=== PATIENT | female | born 1995 | race Caucasian/White ===

== ENCOUNTER 2024-11-25 13:37 | Outpatient (AMB) | payer OTHER, SELFPAY ==
[2024-11-25 13:49] VITALS: BP 101/61; PULSE 78; RESP 17; TEMP 36.9; O2SAT 98; BMI 25.9
--- NOTE | 2024-11-25 13:49 | OBCLNT_ITS ---
Vital Signs 11/25/24 13:49 Height 1.65 m Height Method Stated Weight 70.817 kg Weight Measurement Method Standing Scale BMI 25.9 BP 101/61 Blood Pressure Source Automatic Cuff Blood Pressure Location Right Upper Arm Position Sitting Respiration 17 Pulse 78 Pulse Source Monitor Temp 98.4 F Temp Source Temporal Artery Scan Pulse Oximetry (%) 98 Oxygen Delivery Method Room Air Allergies/Home Meds Allergies & Medications Allergies No Known Allergies Allergy (Verified 11/25/24 13:54) Medication Reconciliation vits no.126-ferrous fum 28 mg iron-folic acid 800 mcg tablet (Classic ) tab PO 11/25/24 [History Confirmed 12/13/24] levothyroxine 88 mcg capsule 88 mcg PO QDAY 11/29/24 [History Confirmed 12/13/24] Intake Visit Data Collection New Patient or Established: New Patient (never been to [facility]) Reason for Visit:: ROBERT Seen by Clinical Staff ONLY (RN/MA): No Missing Persons Investigator Required: No Do You Feel Safe at Home: Yes Authorities Contacted: N/A PCP or OBGYN visit in last 3 months: No Hx Now: Yes Are you currently on any form of Control: No Pain Present Currently: No Pain Scale Used: Valdovinos-Roy/Numerical Pain scale:: 0 Smoking Status Smoking Status: Never smoker Questionnaires Covid-19 Vaccine Questionnaire Has patient been vacinated for Covid-19 Have you been vacinated for Covid-19: No PHQ-9 PHQ-2 Over the last 2 weeks, how often have you been bothered by any of the following problems? 1. Little interest or pleasure in doing things: not at all 2. Feeling down, depressed, or hopeless: not at all Total score: 0 PHQ-9 3. Trouble falling or staying asleep, or sleeping too much: Not at all 4. Feeling tired or having little energy: Not at all 5. Poor appetite or overeating: Not at all 6. Feeling bad about yourself - or that you are a failure or have let yourself or your family down: Not at all 7. Trouble concentrating on things, such as reading the newspaper or watching television: Not at all 8. Moving or speaking so slowly that other people could have noticed? - Or the opposite - being so fidgety or restless that you have been moving around a lot more than usual: not at all 9. Thoughts that you would be better off or of hurting yourself in some way: Not at all Total score: 0 If you checked off any problems, how difficult have these problems made it for you to do your work, take care of things at home, or get along with other people?: not difficult at all Source: Developed by Drs. Reese Quinones, Becky Metz, Kg Zaragoza and colleagues, with an educational artemio from [employer]. Depression screen completed yes Social History Living Situation History Marital Status: Lives With: Spouse Housing: House Housing Other:: Patient stays at home. Her was in the . She was raised here Tobacco History Smoking Status: Never smoker Second Hand Smoke Exposure: No Alcohol History Alcohol Intake: Never Domestic Abuse History Do You Feel Safe at Home: Yes History of Present Illness HPI Narrative The patient is a 29-year-old -0-1-0 presents as an OB transfer. She is an IVF year. Thinks she started her in [place] and then at some point was at [place]. She is is present with her . She brought a thick stack of records for me. She has had an uncomplicated so far. She states based on a 21-week ultrasound she had a low-lying placenta and needs a repeat ultrasound. She is healthy. She had an unknown reason for infer tility. She states she has at least 4 embryos stored. They did not do pregenetic testing on the embryo. 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 Patient may or may not have hypothyroidism. She was placed on thyroid medication by her REYES. OB Initial Visit Menstrual History Menstrual reliability: definite Flow: normal Menstrual regularity: regular Monthly: Yes Age at menarche: 15 On control pills at conception: No OB History : 1 Infection History & Risk Evaluation History of STDs: none HIV risk evaluation: low risk Hepatitis B risk evaluation: low risk Patient or partner has history of Genital Herpes: No Varicella/chicken pox status: unknown Genetic Screening & History Genetic Screening/Teratology Counseling - Includes patient, baby's father, or anyone in either family with: 1. Patient's age 35 years or older as of estimated date of delivery: No 2. Thalassemia (Estonian, Maori, Mediterranean, or Background); MCV less than 80: No 3. Neural Tube Defect (Meningomyelocele, Spina Bifida, or Anencephaly): No 4. Congenital Heart Defect: No 5. Down Syndrome: No 6. Srinivasan-Sachs (Ashkenazi Oriental Orthodox, Cajun, Danish [place]): No 7. Ambrose Disease (Ashkenazi Oriental Orthodox): No 8. Familial Dysautonomia (Ashkenazi Oriental Orthodox): No 9. Sickle Cell Disease or Trait (): No 10. Hemophilia or other blood disorders: No 11. Muscular Dystrophy: No 12. Cystic Fibrosis: No 13. Alec's Chorea: No 14. Mental Retardation/Autism: No 15. Other inherited genetic or chromosomal disorder: No 16. Maternal Metabolic Disorder (EG,TYPE 1 Diabetes, PKU): No 17. Patient or baby's father had a child with defects not listed above: No 18. Recurrent loss or a stillbirth: No 19. Medications (including supplements, vitamins, herbs or otc drugs)/illicit/recreational drugs/alcohol since last menstrual period: No 20. Any other: No Infection History 1. Live with someone with TB or exposed to TB: No 2. Rash or viral illness since last menstrual period: No 3. Hepatitis B,C: No Other (see comments) Source: [employer] Review of Systems Constitutional Comments: Patient reports good movement no contractions no loss of bleeding she is a little tired but has no major nausea or vomiting. She has had an easy . Exam Narrative Physical exam: Fundal height 32. No significant edema or erythema. General Limitations: no limitations General Appearance: alert, in no apparent distress, comfortable, cooperative, healthy appearing and well groomed Neck Neck exam: Present normal inspection, full ROM and trachea midline Chest Chest inspection: Present normal inspection and symmetric chest wall rise Resp Respiratory exam: Present normal lung sounds bilaterally Card Cardiovascular exam: Present regular rate, normal rhythm and normal heart sounds Abdominal Abdominal exam: Present soft and normal bowel sounds Psych Psychiatric exam: Present normal affect and normal mood Skin Skin exam: Present warm, dry, intact and normal color Office Procedures OB Clinic LOC & Office Proc's Nursing/Assessment Patient Status: Initial/New Patient OB Clinic Nursing Assessment: Medication Reconciliation, Update PMH in EMR and Vital Signs OB Clinic Coordination of Care: Complex Care and Chronic Disease 1-5, Consent,records obtained, informed consent, Education Simp Pt/Fam, 4+ Authorizations needed, Lab and Imaging orders, Results/Orders obtained and Staff clarify orders Special Needs: Heart tones New Patient Charge New Patient Point Assignment: [id number] New Patient Point Charge: AGRICULTURAL ECONOMICS PROFESSOR Level 5 (1159-above) Assessment & Plan Diagnosis / Problem List (1) Conceived by in vitro fertilization: Status: Acute Plan: Transfer from out of town. Normal level 21-week ultrasound with low-lying placenta. Repeat ultrasound. Had normal echocardiogram on thyroid medication from her REYES. (2) : Status: Acute Qualifiers: Weeks of gestation: 30 weeks Qualified Code(s): Z3A.30 - 30 weeks gestation of Plan: IVF . Follow-up in 2 weeks.. Needs glucose challenge test. Need repeat ultrasound to check placental location.
== END 2024-11-25 15:39 | disposition home or self-care (01) ==
LOC: HODSOBC 13:37
PROVIDERS: Supervising Provider Obstetrics & Gynecology; Visit Provider Obstetrics & Gynecology
DX: O09.813 Supervision of pregnancy resulting from assisted reproductive technology, third trimester (principal); O44.43 Low lying placenta NOS or without hemorrhage, third trimester; Z3A.30 30 weeks gestation of pregnancy; Z79.890 Hormone replacement therapy
CPT/HCPCS: 99205; G0463

== ENCOUNTER 2024-12-13 10:03 | Outpatient (AMB) | payer MEDICAID, SELFPAY ==
[2024-12-13 10:15] VITALS: BP 109/75; PULSE 80; RESP 17; TEMP 36.7; O2SAT 97; BMI 26.7
--- NOTE | 2024-12-13 10:15 | AMB.OBVISIT ---
Vital Signs 12/13/24 10:15 Height 1.65 m Height Method Stated Weight 72.745 kg Weight Measurement Method Standing Scale BMI 26.7 BP 109/75 Blood Pressure Source Automatic Cuff Blood Pressure Location Right Upper Arm Position Sitting Respiration 17 Pulse 80 Pulse Source Monitor Temp 98.0 F Temp Source Temporal Artery Scan Pulse Oximetry (%) 97 Oxygen Delivery Method Room Air Allergies/Home Meds Allergies & Medications Allergies No Known Allergies Allergy (Verified 11/25/24 13:54) Medication Reconciliation vits no.126-ferrous fum 28 mg iron-folic acid 800 mcg tablet (Classic ) tab PO 11/25/24 [History Confirmed 12/13/24] levothyroxine 88 mcg capsule 88 mcg PO QDAY 11/29/24 [History Confirmed 12/13/24] Intake Visit Data Collection New Patient or Established: Established Patient (seen at [facility] within 3 years) Reason for Visit:: OBC Seen by Clinical Staff ONLY (RN/MA): No Leveler Required: No Do You Feel Safe at Home: Yes Authorities Contacted: N/A PCP or OBGYN visit in last 3 months: Yes Date of Last PCP or OBGYN visit: 11/25/24 Hx Now: Yes Are you currently on any form of Control: No Pain Present Currently: No Pain Scale Used: Valdovinos-Roy/Numerical Pain scale:: 0 Smoking Status Smoking Status: Never smoker Questionnaires Covid-19 Vaccine Questionnaire Has patient been vacinated for Covid-19 Have you been vacinated for Covid-19: No PHQ-9 PHQ-2 Over the last 2 weeks, how often have you been bothered by any of the following problems? 1. Little interest or pleasure in doing things: not at all 2. Feeling down, depressed, or hopeless: not at all Total score: 0 PHQ-9 3. Trouble falling or staying asleep, or sleeping too much: Not at all 4. Feeling tired or having little energy: Not at all 5. Poor appetite or overeating: Not at all 6. Feeling bad about yourself - or that you are a failure or have let yourself or your family down: Not at all 7. Trouble concentrating on things, such as reading the newspaper or watching television: Not at all 8. Moving or speaking so slowly that other people could have noticed? - Or the opposite - being so fidgety or restless that you have been moving around a lot more than usual: not at all 9. Thoughts that you would be better off or of hurting yourself in some way: Not at all Total score: 0 If you checked off any problems, how difficult have these problems made it for you to do your work, take care of things at home, or get along with other people?: not difficult at all Source: Developed by Drs. Reese Quinones, Becky Metz, Kg Zaragoza and colleagues, with an educational artemio from [employer]. Depression screen completed yes Social History Living Situation History Marital Status: Lives With: Spouse Housing: House Tobacco History Smoking Status: Never smoker Second Hand Smoke Exposure: No Alcohol History Alcohol Intake: Never Domestic Abuse History Do You Feel Safe at Home: Yes Care OB Visit Log OB Flowsheet Initial Weight: Not Recorded Date <del>?</del> EGA Weight BP Alb Glu CTX Pres Fundal ht FHR Mov Dilation Station Effacement Hx Notes Visit Note 12/13/24 <del>?</del> 32w 3d 72.745 kg 109/75 absent 33 145 active +FM, No UCs No VB Discussed labor. Patient would like to go natural but she is flexible. She would like to sit on the labor ball if possible. Patient is very reasonable with her labor plan. She states I trust my medical providers . NYDIA Calculator Estimated Delivery Date Method Current WG Current Estimate 02/04/25 LMP (Certain) 32w 3d Other Estimates 01/31/25 Ultrasound #1 33w 0d Expected Delivery Route/Plan Anticipate Specific Issue/Plans 29-year-old -0-1-0 IVF EDC 02/02/2025 consistent with 8-week ultrasound and 20-week ultrasound Notes Visit Date: 12/13/24 Last Updated by: Amy Beltran (OB Clinic)MD care labs reviewed on chart. AB+/antibody negative/rubella immune/RPR nonreactive/hepatitis B surface antigen negative/hepatitis C negative/GC negative Chlamydia negative//hemoglobin A1c in normal at 4.8./NIPT SMA CF negative/21-week ultrasound normal anatomy with a low-lying placenta/echocardiogram on baby normal/EDC by 20-week ultrasound 02/02/2025/EDC by 8-4/7 weeks ultrasound 02/02/2025/EDC by IVF 02/04/2025/urine culture negative. 1 hour glucose 104 Office Procedures OB Clinic LOC & Office Proc's Nursing/Assessment Patient Status: Established Patient OB Clinic Nursing Assessment: Medication Reconciliation, Update PMH in EMR and Vital Signs OB Clinic Coordination of Care: Complex Care and Chronic Disease 1-5, Consent,records obtained, informed consent, Education Simp Pt/Fam and Staff clarify orders Special Needs: Heart tones Established Patient Charge Established Patient Point Assignment: 115 Established Patient Point Charge: EP Level 3 (80-115) Assessment & Plan Diagnosis / Problem List (1) : Status: Acute Qualifiers: Weeks of gestation: 32 weeks Qualified Code(s): Z3A.32 - 32 weeks gestation of (2) Conceived by in vitro fertilization: Status: Acute
== END 2024-12-13 11:25 | disposition home or self-care (01) ==
PROVIDERS: Supervising Provider Obstetrics & Gynecology; Visit Provider Obstetrics & Gynecology
DX: O09.813 Supervision of pregnancy resulting from assisted reproductive technology, third trimester (principal); Z3A.32 32 weeks gestation of pregnancy
CPT/HCPCS: 99213; G0463

== ENCOUNTER 2024-12-29 13:00 | Outpatient (AMB) | payer MEDICAID, SELFPAY ==
[2024-12-29 13:08] VITALS: BP 126/72; PULSE 88; RESP 16; TEMP 36.7; O2SAT 98; BMI 27.1
--- NOTE | 2024-12-29 13:08 | OBCLNT_ITS ---
Vital Signs 12/29/24 13:08 Height 1.65 m Height Method Stated Weight 73.936 kg Weight Measurement Method Standing Scale BMI 27.1 BP 126/72 Blood Pressure Source Automatic Cuff Blood Pressure Location Left Upper Arm Position Sitting Respiration 16 Pulse 88 Pulse Source Monitor Temp 98.1 F Temp Source Oral Pulse Oximetry (%) 98 Oxygen Delivery Method Room Air Allergies/Home Meds Allergies & Medications Allergies No Known Allergies Allergy (Verified 12/29/24 13:09) Medication Reconciliation vits no.126-ferrous fum 28 mg iron-folic acid 800 mcg tablet (Classic ) tab PO 11/25/24 [History Confirmed 12/29/24] levothyroxine 88 mcg capsule 88 mcg PO QDAY #60 caps 12/15/24 [Rx Confirmed 12/29/24] Intake Visit Data Collection New Patient or Established: Established Patient (seen at [facility] within 3 years) Reason for Visit:: CARE Seen by Clinical Staff ONLY (RN/MA): No Special Programs Director Required: No Do You Feel Safe at Home: Yes Authorities Contacted: N/A PCP or OBGYN visit in last 3 months: Yes Hx Now: Yes Are you currently on any form of Control: No Pain Present Currently: No Pain Scale Used: Valdovinos-Roy/Numerical Pain scale:: 0 Smoking Status Smoking Status: Never smoker Questionnaires PHQ-9 PHQ-2 Over the last 2 weeks, how often have you been bothered by any of the following problems? 1. Little interest or pleasure in doing things: not at all 2. Feeling down, depressed, or hopeless: not at all Total score: 0 PHQ-9 3. Trouble falling or staying asleep, or sleeping too much: Not at all 4. Feeling tired or having little energy: Not at all 5. Poor appetite or overeating: Not at all 6. Feeling bad about yourself - or that you are a failure or have let yourself or your family down: Not at all 7. Trouble concentrating on things, such as reading the newspaper or watching television: Not at all 8. Moving or speaking so slowly that other people could have noticed? - Or the opposite - being so fidgety or restless that you have been moving around a lot more than usual: not at all 9. Thoughts that you would be better off or of hurting yourself in some way: Not at all Total score: 0 Source: Developed by Drs. Reese Quinones, Becky Metz, Kg Zaragoza and colleagues, with an educational artemio from [employer]. Depression screen completed yes Social History Living Situation History Lives With: Spouse Housing: House Housing Other:: Patient stays at home. Her was in the . She was raised here Tobacco History Smoking Status: Never smoker Second Hand Smoke Exposure: No Alcohol History Alcohol Intake: Never Domestic Abuse History Do You Feel Safe at Home: Yes Care OB Visit Log OB Flowsheet Initial Weight: Not Recorded Date -?-?-?-?-?-?-?-?-?-?-?-?- EGA Weight BP Alb Glu CTX Pres Fundal ht FHR Mov Dilation Station Effacement Hx Notes Visit Note 12/13/24 -?-?-?-?-?-?-?-?-?-?-?-?- 32w 3d 72.745 kg 109/75 absent 33 145 active +FM, N o UCs No VB Discussed labor. Patient would like to go natural but she is flexible. She would like to sit on the labor ball if possible. Patient is very reasonable with her labor plan. She states I trust my medical providers . 12/29/24 -?-?-?-?-?-?-?-?-?-?-?-?- 34w 5d 73.936 kg 126/72 absent cephalic 34 137 active +FM No UCs or LOF NYDIA Calculator Estimated Delivery Date Method Current WG Current Estimate 02/04/25 LMP (Certain) 35w 3d Other Estimates 01/31/25 Ultrasound #1 36w 0d Expected Delivery Route/Plan Anticipate Has a plan wants FOB to deliver baby Specific Issue/Plans 29-year-old -0-1-0 IVF EDC 02/02/2025 consistent with 8-week ultrasound and 20-week ultrasound Had ECHO on baby Notes Visit Date: 12/29/24 Last Updated by: Amy Beltran (OB Clinic)MD US ordered 12/29: No low-lying placenta Baby VTX 2610 gm CHANTAL 13.8 appropriate growth Visit Date: 12/13/24 Last Updated by: Amy Beltran (OB Clinic)MD care labs reviewed on chart. AB+/antibody negative/rubella immune/RPR nonreactive/hepatitis B surface antigen negative/hepatitis C negative/GC negative Chlamydia negative//hemoglobin A1c in normal at 4.8./NIPT SMA CF negative/21-week ultrasound normal anatomy with a low-lying placenta/echocardiogram on baby normal/EDC by 20-week ultrasound 02/02/2025/EDC by 8-4/7 weeks ultrasound 02/02/2025/EDC by IVF 02/04/2025/urine culture negative. 1 hour glucose 104 Office Procedures OB Clinic LOC & Office Proc's Nursing/Assessment Patient Status: Established Patient OB Clinic Nursing Assessment: Medication Reconciliation, Update PMH in EMR and Vital Signs OB Clinic Coordination of Care: Complex Care and Chronic Disease 1-5, Consent,records obtained, informed consent, Education Simp Pt/Fam, 1 Ins Authorization, Lab and Imaging orders, Results/Orders obtained and Staff clarify orders Special Needs: Heart tones Established Patient Charge Established Patient Point Assignment: 150 Established Patient Point Charge: EP Level 4 (120-155) Assessment & Plan Diagnosis / Problem List (1) Low lying placenta without hemorrhage, antepartum: Status: Acute Plan: Resolved on 34 weeks US (2) Conceived by in vitro fertilization: Status: Acute (3) : Status: Acute Qualifiers: Weeks of gestation: 34 weeks Qualified Code(s): Z3A.34 - 34 weeks gestation of
== END 2024-12-29 14:04 | disposition home or self-care (01) ==
LOC: HODSOBC 13:00
PROVIDERS: Supervising Provider Obstetrics & Gynecology; Visit Provider Obstetrics & Gynecology
DX: O09.813 Supervision of pregnancy resulting from assisted reproductive technology, third trimester (principal); O09.893 Supervision of other high risk pregnancies, third trimester; O44.43 Low lying placenta NOS or without hemorrhage, third trimester; Z3A.34 34 weeks gestation of pregnancy
CPT/HCPCS: 99214; G0463

== ENCOUNTER → 2024-12-29 | Outpatient (CLI) | payer MEDICAID, SELFPAY ==
--- NOTE | 2024-12-29 14:55 | XR_ITS ---
Examination: Complete OB ultrasound greater than 14 weeks Date and time of exam: December 29, 2024, 1520 hours INDICATIONS: Diagnosis low lying placenta Findings: Viable intrauterine single fetus with single amniotic sac presentation cephalic spine maternal right. Cardiac motion 140 BPM. Placenta anterior grade 2. Umbilical cord insertion seen. Amniotic fluid index 13.8 cm Cervix 3.5 cm. Ovaries obscured by bowel gas.. Composite estimated gestational age based on BPD, head circumference, abdominal circumference, femur length is 35 weeks 0 days. Estimated weight 2610 g.. Survey of intracranial anatomy, spinal anatomy, abdominal anatomy, four-chamber heart performed with no abnormalities identified. Impression: Viable intrauterine gestation cephalic presentation..
== END | disposition home or self-care (01) ==
PROVIDERS: Referring Provider Obstetrics & Gynecology; Visit Provider Obstetrics & Gynecology
DX: O44.40 Low lying placenta NOS or without hemorrhage, unspecified trimester (principal); Z3A.35 35 weeks gestation of pregnancy
CPT/HCPCS: 76805

== ENCOUNTER 2025-01-04 10:30 | Outpatient (AMB) | payer MEDICAID, SELFPAY ==
[2025-01-04 11:11] VITALS: BP 121/71; PULSE 97; RESP 16; TEMP 36.2; O2SAT 97; BMI 27.2
--- NOTE | 2025-01-04 11:11 | OBCLNT_ITS ---
Vital Signs 01/04/25 11:11 Height 1.65 m Height Method Stated Weight 74.162 kg Weight Measurement Method Standing Scale BMI 27.2 BP 121/71 Blood Pressure Source Automatic Cuff Blood Pressure Location Left Upper Arm Position Sitting Respiration 16 Pulse 97 Pulse Source Monitor Temp 97.2 F Temp Source Oral Pulse Oximetry (%) 97 Oxygen Delivery Method Room Air Allergies/Home Meds Allergies & Medications Allergies No Known Allergies Allergy (Verified 01/04/25 11:12) Medication Reconciliation vits no.126-ferrous fum 28 mg iron-folic acid 800 mcg tablet (Classic ) tab PO 11/25/24 [History Confirmed 01/04/25] levothyroxine 88 mcg capsule 88 mcg PO QDAY #60 caps 12/15/24 [Rx Confirmed 01/04/25] Intake Visit Data Collection New Patient or Established: Established Patient (seen at [facility] within 3 years) Reason for Visit:: OBC Seen by Clinical Staff ONLY (RN/MA): No Pulper Required: No Do You Feel Safe at Home: Yes Authorities Contacted: N/A PCP or OBGYN visit in last 3 months: Yes Date of Last PCP or OBGYN visit: 12/29/24 Hx Now: Yes Are you currently on any form of Control: No Pain Present Currently: No Pain Scale Used: Valdovinos-Roy/Numerical Pain scale:: 0 Smoking Status Smoking Status: Never smoker Questionnaires Covid-19 Vaccine Questionnaire Has patient been vacinated for Covid-19 Have you been vacinated for Covid-19: Yes PHQ-9 PHQ-2 Over the last 2 weeks, how often have you been bothered by any of the following problems? 1. Little interest or pleasure in doing things: not at all 2. Feeling down, depressed, or hopeless: not at all Total score: 0 PHQ-9 3. Trouble falling or staying asleep, or sleeping too much: Not at all 4. Feeling tired or having little energy: Not at all 5. Poor appetite or overeating: Not at all 6. Feeling bad about yourself - or that you are a failure or have let yourself or your family down: Not at all 7. Trouble concentrating on things, such as reading the newspaper or watching television: Not at all 8. Moving or speaking so slowly that other people could have noticed? - Or the opposite - being so fidgety or restless that you have been moving around a lot more than usual: not at all 9. Thoughts that you would be better off or of hurting yourself in some way: Not at all Total score: 0 If you checked off any problems, how difficult have these problems made it for you to do your work, take care of things at home, or get along with other people?: not difficult at all Source: Developed by Drs. Reese Quinones, Becky Metz, Kg Zaragoza and colleagues, with an educational artemio from [employer]. Depression screen completed yes Social History Living Situation History Lives With: Spouse Housing: House Housing Other:: Patient stays at home. Her was in the . She was raised here Tobacco History Smoking Status: Never smoker Second Hand Smoke Exposure: No Alcohol History Alcohol Intake: Never Domestic Abuse History Do You Feel Safe at Home: Yes Care OB Visit Log OB Flowsheet Initial Weight: Not Recorded Date -?-?-?-?-?-?-?-?-?-?-?-?- EGA Weight BP Alb Glu CTX Pres Fundal ht FHR Mov Dilation Station Effacement Hx Notes Visit Note 12/13/24 -?-?-?-?-?-?-?-?-?-?-?-?- 32w 3d 72.745 kg 109/75 absent 33 145 active +FM, N o UCs No VB Discussed labor. Patient would like to go natural but she is flexible. She would like to sit on the labor ball if possible. Patient is very reasonable with her labor plan. She states I trust my medical providers . 12/29/24 -?-?-?-?-?-?-?-?-?-?-?-?- 34w 5d 73.936 kg 126/72 absent cephalic 34 137 active +FM No UCs or LOF 01/04/25 -?-?-?-?-?-?-?-?-?-?-?-?- 35w 4d 74.162 kg 121/71 occasional cephalic 36 134 active Good movement. No contractions or loss of fluids. No vaginal bleeding Group B strep next visit. NYDIA Calculator Estimated Delivery Date Method Current WG Current Estimate 02/04/25 LMP (Certain) 36w 0d Other Estimates 01/31/25 Ultrasound #1 36w 4d Expected Delivery Route/Plan Anticipate Has a plan wants FOB to deliver baby Specific Issue/Plans 29-year-old -0-1-0 IVF EDC 02/02/2025 consistent with 8-week ultrasound and 20-week ultrasound Had ECHO on baby Notes Visit Date: 01/04/25 Last Updated by: Amy Beltran ([facility])MD Ordered weekly NST CHANTAL's for IVF . Visit Date: 12/29/24 Last Updated by: Amy Beltran ([facility] Clinic)MD US ordered 12/29: No low-lying placenta Baby VTX 2610 gm CHANTAL 13.8 appropriate growth Visit Date: 12/13/24 Last Updated by: Amy Beltran (OB Clinic)MD care labs reviewed on chart. AB+/antibody negative/rubella immune/RPR nonreactive/hepatitis B surface antigen negative/hepatitis C negative/GC negative Chlamydia negative//hemoglobin A1c in normal at 4.8./NIPT SMA CF negative/21-week ultrasound normal anatomy with a low-lying placenta/echocardiogram on baby normal/EDC by 20-week ultrasound 02/02/2025/EDC by 8-4/7 weeks ultrasound 02/02/2025/EDC by IVF 02/04/2025/urine culture negative. 1 hour glucose 104 Office Procedures OB Clinic LOC & Office Proc's Nursing/Assessment Patient Status: Established Patient OB Clinic Nursing Assessment: Medication Reconciliation, Update PMH in EMR and Vital Signs OB Clinic Coordination of Care: Education Complex Pt/Fam, Consent,records obtained, informed consent, Lab and Imaging orders and Staff clarify orders Special Needs: Heart tones Established Patient Charge Established Patient Point Assignment: 110 Established Patient Point Charge: EP Level 3 (80-115) Assessment & Plan Diagnosis / Problem List (1) Conceived by in vitro fertilization: Status: Acute Plan: Authorize for NSTs CHANTAL's (2) : Status: Acute Qualifiers: Weeks of gestation: 36 weeks Qualified Code(s): Z3A.36 - 36 weeks gestation of
== END 2025-01-04 11:23 | disposition home or self-care (01) ==
LOC: HODSOBC 10:30
PROVIDERS: Supervising Provider Obstetrics & Gynecology; Visit Provider Obstetrics & Gynecology
DX: O09.813 Supervision of pregnancy resulting from assisted reproductive technology, third trimester (principal); Z3A.35 35 weeks gestation of pregnancy
CPT/HCPCS: 99213; G0463

== ENCOUNTER 2025-01-19 10:34 | Outpatient (AMB) | payer MEDICAID, SELFPAY ==
[2025-01-19 11:09] VITALS: BP 109/71; PULSE 79; RESP 16; TEMP 36.2; O2SAT 98; BMI 27.8
--- NOTE | 2025-01-19 11:09 | OBCLNT_ITS ---
Vital Signs 01/19/25 11:09 Height 1.65 m Height Method Stated Weight 75.977 kg Weight Measurement Method Standing Scale BMI 27.8 BP 109/71 Blood Pressure Source Automatic Cuff Blood Pressure Location Left Upper Arm Position Sitting Respiration 16 Pulse 79 Pulse Source Monitor Temp 97.2 F Temp Source Oral Pulse Oximetry (%) 98 Oxygen Delivery Method Room Air Allergies/Home Meds Allergies & Medications Allergies No Known Allergies Allergy (Verified 01/19/25 11:10) Medication Reconciliation vits no.126-ferrous fum 28 mg iron-folic acid 800 mcg tablet (Classic ) tab PO 11/25/24 [History Confirmed 01/19/25] levothyroxine 88 mcg capsule 88 mcg PO QDAY #60 caps 12/15/24 [Rx Confirmed 01/19/25] Intake Visit Data Collection New Patient or Established: Established Patient (seen at [facility] within 3 years) Reason for Visit:: OBC Seen by Clinical Staff ONLY (RN/MA): No Supervisor Engine Assembly Required: No Do You Feel Safe at Home: Yes Authorities Contacted: N/A PCP or OBGYN visit in last 3 months: Yes Hx Now: Yes Are you currently on any form of Control: No Pain Present Currently: No Pain Scale Used: Valdovinos-Roy/Numerical Pain scale:: 0 Smoking Status Smoking Status: Never smoker Questionnaires Covid-19 Vaccine Questionnaire Has patient been vacinated for Covid-19 Have you been vacinated for Covid-19: No PHQ-9 PHQ-2 Over the last 2 weeks, how often have you been bothered by any of the following problems? 1. Little interest or pleasure in doing things: not at all 2. Feeling down, depressed, or hopeless: not at all Total score: 0 PHQ-9 3. Trouble falling or staying asleep, or sleeping too much: Not at all 4. Feeling tired or having little energy: Not at all 5. Poor appetite or overeating: Not at all 6. Feeling bad about yourself - or that you are a failure or have let yourself or your family down: Not at all 7. Trouble concentrating on things, such as reading the newspaper or watching television: Not at all 8. Moving or speaking so slowly that other people could have noticed? - Or the opposite - being so fidgety or restless that you have been moving around a lot more than usual: not at all 9. Thoughts that you would be better off or of hurting yourself in some way: Not at all Total score: 0 If you checked off any problems, how difficult have these problems made it for you to do your work, take care of things at home, or get along with other people?: not difficult at all Source: Developed by Drs. Reese Quinones, Becky Metz, Kg Zaragoza and colleagues, with an educational artemio from [employer]. Depression screen completed yes Social History Living Situation History Lives With: Spouse Housing: House Housing Other:: Patient stays at home. Her was in the . She was raised here Tobacco History Smoking Status: Never smoker Second Hand Smoke Exposure: No Alcohol History Alcohol Intake: Never Domestic Abuse History Do You Feel Safe at Home: Yes Care OB Visit Log OB Flowsheet Initial Weight: Not Recorded Date -?-?-?-?-?-?-?-?-?-?-?-?- EGA Weight BP Alb Glu CTX Pres Fundal ht FHR Mov Dilation Station Effacement Hx Notes Visit Note 12/13/24 -?-?-?-?-?-?-?-?-?-?-?-?- 32w 3d 72.745 kg 109/75 absent 33 145 active +FM, N o UCs No VB Discussed labor. Patient would like to go natural but she is flexible. She would like to sit on the labor ball if possible. Patient is very reasonable with her labor plan. She states I trust my medical providers . 12/29/24 -?-?-?-?-?-?-?-?-?-?-?-?- 34w 5d 73.936 kg 126/72 absent cephalic 34 137 active +FM No UCs or LOF 01/04/25 -?-?-?-?-?-?-?-?-?-?-?-?- 35w 4d 74.162 kg 121/71 occasional cephalic 36 134 active Good movement. No contractions or loss of fluids. No vaginal bleeding Group B strep next visit. 01/19/25 -?-?-?-?-?-?-?-?-?-?-?-?- 37w 5d 75.977 kg 109/71 occasional cephalic 36 143 active 1 -1 80 Good movement no contractions no loss of fluids Strep screen done today NYDIA Calculator Estimated Delivery Date Method Current WG Current Estimate 02/04/25 LMP (Certain) 37w 5d Other Estimates 01/31/25 Ultrasound #1 38w 2d Expected Delivery Route/Plan Anticipate Has a plan wants FOB to deliver baby Specific Issue/Plans 29-year-old -0-1-0 IVF EDC 02/02/2025 consistent with 8-week ultrasound and 20-week ultrasound Had ECHO on baby due to IVF Notes Visit Date: 01/19/25 Last Updated by: Amy Beltran ([facility])MD Urine dip negative protein negative glucose today. Labor precautions and kick counts reviewed Visit Date: 01/04/25 Last Updated by: Amy Beltran ([facility])MD Ordered weekly NST CHANTAL's for IVF . Visit Date: 12/29/24 Last Updated by: Amy Beltran ([facility])MD US ordered 12/29: No low-lying placenta Baby VTX 2610 gm CHANTAL 13.8 appropriate growth Visit Date: 12/13/24 Last Updated by: Amy Beltran ([facility])MD care labs reviewed on chart. AB+/antibody negative/rubella immune/RPR nonreactive/hepatitis B surface antigen negative/hepatitis C negative/GC negative Chlamydia negative//hemoglobin A1c in normal at 4.8./NIPT SMA CF negative/21-week ultrasound normal anatomy with a low-lying placenta/echocardiogram on baby normal/EDC by 20-week ultrasound 02/02/2025/EDC by 8-4/7 weeks ultrasound 02/02/2025/EDC by IVF 02/04/2025/urine culture negative. 1 hour glucose 104 Office Procedures OB Clinic LOC & Office Proc's Nursing/Assessment Patient Status: Established Patient OB Clinic Nursing Assessment: Medication Reconciliation, Update PMH in EMR and Vital Signs OB Clinic Coordination of Care: Education Complex Pt/Fam, Consent,records obtained, informed consent, Lab and Imaging orders, Results/Orders obtained and Staff clarify orders Special Needs: Heart tones Miscellaneous Interventions: Pelvic Comp w/OB cult Established Patient Charge Established Patient Point Assignment: 130 Established Patient Point Charge: EP Level 4 (120-155) Assessment & Plan Diagnosis / Problem List (1) Conceived by in vitro fertilization: Status: Acute Plan: Patient's status post echocardiogram on baby. Getting NSTs and BPP's. (2) : Status: Acute Qualifiers: Weeks of gestation: 37 weeks Qualified Code(s): Z3A.37 - 37 weeks gestation of Plan: Group B strep collected. Patient wants to go natural and has a plan.
== END 2025-01-19 11:48 | disposition home or self-care (01) ==
LOC: HODSOBC 10:34
PROVIDERS: Supervising Provider Obstetrics & Gynecology; Visit Provider Obstetrics & Gynecology
DX: O09.813 Supervision of pregnancy resulting from assisted reproductive technology, third trimester (principal); Z3A.37 37 weeks gestation of pregnancy; Z36.85 Encounter for antenatal screening for Streptococcus B
CPT/HCPCS: 99214; G0463

== ENCOUNTER 2025-01-26 07:54 | Outpatient (RCR) | payer MEDICAID, SELFPAY ==
--- NOTE | 2025-01-12 08:47 | XR_ITS ---
Examination: Biophysical profile, ultrasound Date and time of exam: January 12, 2025 0901 hours INDICATIONS: Diagnosis low lying placenta, IVF Technique: Multiple transabdominal sonographic images of the pelvis abdomen obtained. Attention is directed to the breathing movement, gross body movement, amniotic fluid volume and tone. Findings: Amniotic fluid index 11.2 cm Total biophysical profile is 8 of 8. breathing movement is 2. Gross body movement is 2. tone is 2. Qualitative amniotic fluid volume is 2 Impression: Biophysical profile is 8 of 8.
[2025-01-12 09:29] VITALS: BP 96/54; PULSE 79; RESP 16; TEMP 36.7
--- NOTE | 2025-01-19 08:03 | XR_ITS ---
Examination: Biophysical profile, ultrasound Date and time of exam: January 19, 2025 0812 hours INDICATIONS: Diagnosis low lying placenta, IVF Technique: Multiple transabdominal sonographic images of the pelvis abdomen obtained. Attention is directed to the breathing movement, gross body movement, amniotic fluid volume and tone. Findings: Amniotic fluid index 10.1 cm Total biophysical profile is 8 of 8. breathing movement is 2. Gross body movement is 2. tone is 2. Qualitative amniotic fluid volume is 2 Impression: Biophysical profile is 8 of 8.
[2025-01-19 08:33] VITALS: BP 116/76; PULSE 75; RESP 16; TEMP 36.7
--- NOTE | 2025-01-26 08:05 | XR_ITS ---
Examination: Biophysical profile, ultrasound Date and time of exam: January 22 08/13/2024 at 0813 hours INDICATIONS: Diagnosis low lying placenta, IVF Technique: Multiple transabdominal sonographic images of the pelvis abdomen obtained. Attention is directed to the breathing movement, gross body movement, amniotic fluid volume and tone. Findings: Amniotic fluid index 14.9 cm Total biophysical profile is 8 of 8. breathing movement is 2. Gross body movement is 2. tone is 2. Qualitative amniotic fluid volume is 2 Impression: Biophysical profile is 8 of 8.
[2025-01-26 08:32] VITALS: BP 96/55; PULSE 75; RESP 16; TEMP 36.6
== END 2025-01-26 23:59 | disposition home or self-care (01) ==
LOC: S4S1 07:54
PROVIDERS: Referring Provider Obstetrics & Gynecology; Visit Provider Obstetrics & Gynecology
DX: O09.813 Supervision of pregnancy resulting from assisted reproductive technology, third trimester (principal); Z3A.38 38 weeks gestation of pregnancy
CPT/HCPCS: 59025; 76819

== ENCOUNTER 2025-01-26 10:48 | Outpatient (AMB) | payer MEDICAID, SELFPAY ==
[2025-01-26 10:54] VITALS: BP 110/78; PULSE 87; RESP 18; TEMP 36.2; O2SAT 98; BMI 27.7
--- NOTE | 2025-01-26 10:54 | AMB.OBVISIT ---
Vital Signs 01/26/25 10:54 Height 1.65 m Height Method Stated Weight 75.466 kg Weight Measurement Method Standing Scale BMI 27.7 BP 110/78 Blood Pressure Source Automatic Cuff Blood Pressure Location Left Upper Arm Position Sitting Respiration 18 Pulse 87 Pulse Source Monitor Temp 97.2 F Temp Source Oral Pulse Oximetry (%) 98 Oxygen Delivery Method Room Air Allergies/Home Meds Allergies & Medications Allergies No Known Allergies Allergy (Verified 01/26/25 10:55) Medication Reconciliation vits no.126-ferrous fum 28 mg iron-folic acid 800 mcg tablet (Classic ) tab PO 11/25/24 [History Confirmed 01/26/25] levothyroxine 88 mcg capsule 88 mcg PO QDAY #60 caps 12/15/24 [Rx Confirmed 01/26/25] Intake Visit Data Collection New Patient or Established: Established Patient (seen at [facility] within 3 years) Reason for Visit:: OBC WEEKLY Seen by Clinical Staff ONLY (RN/MA): No Gem Stone Cutter Required: No Do You Feel Safe at Home: Yes Authorities Contacted: N/A PCP or OBGYN visit in last 3 months: Yes Hx Now: Yes Are you currently on any form of Control: No Pain Present Currently: No Pain Scale Used: Valdovinos-Roy/Numerical Pain scale:: 0 Smoking Status Smoking Status: Never smoker Questionnaires Covid-19 Vaccine Questionnaire Has patient been vacinated for Covid-19 Have you been vacinated for Covid-19: Yes PHQ-9 PHQ-2 Over the last 2 weeks, how often have you been bothered by any of the following problems? 1. Little interest or pleasure in doing things: not at all 2. Feeling down, depressed, or hopeless: not at all Total score: 0 PHQ-9 3. Trouble falling or staying asleep, or sleeping too much: Not at all 4. Feeling tired or having little energy: Not at all 5. Poor appetite or overeating: Not at all 6. Feeling bad about yourself - or that you are a failure or have let yourself or your family down: Not at all 7. Trouble concentrating on things, such as reading the newspaper or watching television: Not at all 8. Moving or speaking so slowly that other people could have noticed? - Or the opposite - being so fidgety or restless that you have been moving around a lot more than usual: not at all 9. Thoughts that you would be better off or of hurting yourself in some way: Not at all Total score: 0 If you checked off any problems, how difficult have these problems made it for you to do your work, take care of things at home, or get along with other people?: not difficult at all Source: Developed by Drs. Reese Quinones, Becky Metz, Kg Zaragoza and colleagues, with an educational artemio from [employer]. Depression screen completed yes Social History Living Situation History Marital Status: Lives With: Spouse Housing: House Housing Other:: Patient stays at home. Her was in the . She was raised here Tobacco History Smoking Status: Never smoker Second Hand Smoke Exposure: No Alcohol History Alcohol Intake: Never Domestic Abuse History Do You Feel Safe at Home: Yes Care OB Visit Log OB Flowsheet Initial Weight: Not Recorded Date <del>?</del> EGA Weight BP Alb Glu CTX Pres Fundal ht FHR Mov Dilation Station Effacement Hx Notes Visit Note 12/13/24 <del>?</del> 32w 3d 72.745 kg 109/75 absent 33 145 active +FM, No UCs No VB Discussed labor. Patient would like to go natural but she is flexible. She would like to sit on the labor ball if possible. Patient is very reasonable with her labor plan. She states I trust my medical providers . 12/29/24 <del>?</del> 34w 5d 73.936 kg 126/72 absent cephalic 34 137 active +FM No UCs or LOF 01/04/25 <del>?</del> 35w 4d 74.162 kg 121/71 occasional cephalic 36 134 active Good movement. No contractions or loss of fluids. No vaginal bleeding Group B strep next visit. 01/19/25 <del>?</del> 37w 5d 75.977 kg 109/71 occasional cephalic 36 143 active 1 -1 80 Good movement no contractions no loss of fluids Strep screen done today 01/26/25 <del>?</del> 38w 5d 75.466 kg 110/78 occasional cephalic 37 145 active Good movement no contractions no loss of fluids Patient did not want to be examined today. NST reactive today at the hospital. BPP normal. Group B strep negative. NYDIA Calculator Estimated Delivery Date Method Current WG Current Estimate 02/04/25 LMP (Certain) 38w 5d Other Estimates 01/31/25 Ultrasound #1 39w 2d Expected Delivery Route/Plan Anticipate Has a plan wants FOB to deliver baby Specific Issue/Plans 29-year-old -0-1-0 IVF EDC 02/02/2025 consistent with 8-week ultrasound and 20-week ultrasound Had ECHO on baby due to IVF Notes Visit Date: 01/26/25 Last Updated by: Amy Beltran ([facility])MD Labor precautions kick counts group B strep negative. Visit Date: 01/19/25 Last Updated by: Amy Beltran ([facility])MD Urine dip negative protein negative glucose today. Labor precautions and kick counts reviewed Visit Date: 01/04/25 Last Updated by: Amy Beltran ([facility])MD Ordered weekly NST CHANTAL's for IVF . Visit Date: 12/29/24 Last Updated by: Amy Beltran ([facility])MD US ordered 12/29: No low-lying placenta Baby VTX 2610 gm CHANTAL 13.8 appropriate growth Visit Date: 12/13/24 Last Updated by: Amy Beltran ([facility])MD care labs reviewed on chart. AB+/antibody negative/rubella immune/RPR nonreactive/hepatitis B surface antigen negative/hepatitis C negative/GC negative Chlamydia negative//hemoglobin A1c in normal at 4.8./NIPT SMA CF negative/21-week ultrasound normal anatomy with a low-lying placenta/echocardiogram on baby normal/EDC by 20-week ultrasound 02/02/2025/EDC by 8-4/7 weeks ultrasound 02/02/2025/EDC by IVF 02/04/2025/urine culture negative. 1 hour glucose 104 Office Procedures OBC Clinic LOC & Office Proc's Nursing/Assessment Patient Status: Established Patient OB Clinic Nursing Assessment: Medication Reconciliation, Update PMH in EMR and Vital Signs OB Clinic Coordination of Care: Education Complex Pt/Fam, Consent,records obtained, informed consent, Lab and Imaging orders, Results/Orders obtained and Staff clarify orders Special Needs: Heart tones Established Patient Charge Established Patient Point Assignment: 115 Established Patient Point Charge: EP Level 3 (80-115) Assessment & Plan Diagnosis / Problem List (1) Conceived by in vitro fertilization: Status: Acute Plan: Getting NSTs and BPP's she is (2) : Status: Acute Qualifiers: Weeks of gestation: 37 weeks Qualified Code(s): Z3A.37 - 37 weeks gestation of
== END 2025-01-26 11:39 | disposition home or self-care (01) ==
LOC: HODSOBC 10:48
PROVIDERS: Supervising Provider Obstetrics & Gynecology; Visit Provider Obstetrics & Gynecology
DX: O09.813 Supervision of pregnancy resulting from assisted reproductive technology, third trimester (principal); Z3A.38 38 weeks gestation of pregnancy
CPT/HCPCS: 99213; G0463

== ENCOUNTER 2025-02-01 16:54 | Inpatient (IN) | payer MEDICAID, SELFPAY ==
[2025-02-01] VITALS (9 sets, daily range): BP systolic 104–111; BP diastolic 59–71; PULSE 58–85; RESP 14–99; TEMP 36.6–36.8; O2SAT 98–99; BMI 27.9
[2025-02-01 17:20] LABS: ROM Kit Exp Date# 01/18/28; ROM Kit Lot # 58104371; ROM Swab Mixed By: LAUTH; Swb Mxed in Solvent 1 min? Yes
[2025-02-01 17:21] LABS: Rupture of Fetal Membranes Positive (Negative)
[2025-02-01 18:22] LABS: Basophils # (Auto) 0.1 Thou/mm3 (0.0-0.2); Basophils % (Auto) 1 % (0-2.5); Eosinophils # (Auto) 0.1 Thou/mm3 (0.0-0.5); Eosinophils % (Auto) 1 % (0-10); Hematocrit 37.5 % (36.0-46.0); Hemoglobin 13.2 g/dL (12.0-16.0); Immature Granulocytes Auto 0.03 Thou/mm3 (0.00-0.00); Lymphocytes # (Auto) 1.4 Thou/mm3 (1.0-4.8); Lymphocytes % (Auto) 16 % (10-50); Mean Corpuscular HGB Conc 35.2 g/dl (31.0-37.0); Mean Corpuscular Hemoglobin 33.0 pg (25.0-35.0); Mean Corpuscular Volume 94 fL (80-100); Monocytes # (Auto) 0.9 Thou/mm3 (0.0-0.8); Monocytes % (Auto) 11 % (0-12); Neutrophils # (Auto) 6.1 Thou/mm3 (1.8-7.7); Neutrophils % (Auto) 71 % (37-80); Nucleated Red Blood Cell # 0.00 Thou/mm3 (0.00-0.00); Nucleated Red Blood Cell % 0 /100 WBC (0); Platelet Count 231 Thou/mm3 (140-440); RDW Standard Deviation 44.3 fL (36.4-46.3); Red Blood Count 4.00 Miln/mm3 (4.00-5.20); White Blood Count 8.6 Thou/mm3 (3.6-11.0)
--- NOTE | 2025-02-01 18:39 | PD.LDHP ---
Documentation for date of: 02/01/25 OB Labor/Induct. HPI History of Present Illness Chief complaint: water broke at 1526 pm today and uterine contractions , conceived by IVF : 2 Para: 0 Term pregnancies: 0 pregnancies: 0 Living children: 0 History of Abortions: Spontaneous and Elective: 1 History of Vaginal deliveries: 0 History of sections: No History of : No NYDIA: 02/05/25 Gestational Age (weeks): 39 Gestational Age (days): 3 Comments: SROM today afternoon, GBS negative and has spontaneous UC History of Present Dating criteria: other (IVF ) Adequate Care: Yes Obstetrical complications: other (IVF ) Narrative: hypothyroid on medication Labs Labs: Positive: Rubella Titre, Negative: RPR, Hepatitis B, HIV, Chlamydia, Gonorrhea and Group Beta Strep and Unknown: Herpes Type 1, Herpes Type 2 and Covid-19 Review of Systems Review of Systems Systems Reviewed: All systems reviewed, normal except as documented Past Medical History Past Medical History ENDOCRINE: Positive Hypothyroidism (on 88 mcg of medication levothyroid) Surgical History SURGICAL: Negative Section Meds Home Medications and Allergies Home Medications ?Medication ?Instructions ?Recorded ?Confirmed ?Type vits no.126-ferrous fum 1 tab PO QDAY 11/25/24 02/01/25 History 28 mg iron-folic acid 800 mcg tablet (Classic ) Allergies Allergy/AdvReac Type Severity Reaction Status Date / Time No Known Allergies Allergy Verified 02/01/25 17:42 OB Exam Physical Exam Vital signs: Temp Pulse Resp BP Pulse Ox 98.2 F 72 17 111/71 98 02/01/25 17:00 02/01/25 17:00 02/01/25 17:00 02/01/25 17:02/01/25 17:26 Narrative: patient is alertx 3 S c/w dates non tender uterus NST reassuring and category 1 / Chest/ respiratory /CVS exam is normal Detailed Labor and Delivery Exam Dilation (cm): 1 cm Routine Extremities Exam Extremities: Present full ROM and pulses intact Routine Neurological Exam Neurological: Present alert, oriented X3, normal reflexes, vision grossly intact and normal speech Routine Psychiatric Exam Psychiatric: Present normal affect, normal thought process and cooperative OB Results Labs 02/01/25 17:50 OB Assessment & Plan Assessment and Plan (1) Low lying placenta without hemorrhage, antepartum: Status: Acute (2) Conceived by in vitro fertilization: Status: Acute (3) : Status: Acute (4) with 39 completed weeks gestation: Status: Acute (5) Labor abnormality: Status: Acute Additional Plan Additional Plan Comment: expectant management. augmentation if needed . GBS negative Epidural if desires and labs appropriate (3) Qualifiers: Weeks of gestation: 37 weeks Qualified Code(s): Z3A.37 - 37 weeks gestation of
[2025-02-01 20:22] LABS: Syphilis Nonreactive (Nonreactive)
[2025-02-02] VITALS (321 sets, daily range): BP systolic 83–143; BP diastolic 46–76; PULSE 54–145; RESP 16; TEMP 36.6–36.8; O2SAT 85–100
[2025-02-02] MEDS: RINGERS LACTATED 1000 ML 1,000 ML 100 ML IV ×4 (00:56→13:24)
[2025-02-02] MEDS: LEVOTHYROXINE SODIUM 88 MCG TABLET PO (06:05)
--- NOTE | 2025-02-02 08:13 | PD.LDPN ---
Documentation for date of: 02/02/25 OB Labor Progress Note Pain Control Pain control: epidural Comments: Patient is resting comfortably with epidural in place. Of note she had to have a second epidural placed. Pelvic Exam Dilation (cm): 4.5 Effacement (%): 80 station: -2 Amniotic membrane status: Leaking Comments: IUPC placed at 0719 Contractions Monitor mode: External Contraction frequency: 3-4.5 Contraction pattern: Coupling Contraction intensity: Moderate Status status: Category l Assessment and Plan Plan OB labor note: begin Pitocin augmentation Comments: Contractions are not adequate. Start Pitocin augmentation.
--- NOTE | 2025-02-02 08:57 | PD.LDPN ---
Documentation for date of: 02/02/25 OB Labor Progress Note Pain Control Pain control: epidural Pelvic Exam Dilation (cm): 4.5 Effacement (%): 80 station: -2 Amniotic membrane status: Leaking Contractions Monitor mode: External Contraction frequency: 1.5-5.5 Contraction pattern: Coupling Contraction intensity: Moderate Status status: Category l Assessment and Plan Plan OB labor note: begin Pitocin augmentation Comments: UCs not adequate. BP a little low but baby is tolerating labor. Plan: Start Pitocin. Ordered at 0800 and not started yet. Ordered again at 0900.
[2025-02-02] MEDS: OXYTOCIN in NS 30 units 30 UNIT/500 ML BAG IV (09:27)
--- NOTE | 2025-02-02 12:58 | PD.LDPN ---
Documentation for date of: 02/02/25 OB Labor Progress Note Pain Control Pain control: tolerating well and epidural Pelvic Exam Dilation (cm): 6 Effacement (%): 80 station: 0 Amniotic membrane status: Leaking Contractions Monitor mode: Internal Contraction frequency: 1-4 Contraction pattern: Coupling Contraction intensity: Moderate Status status: Category l Assessment and Plan Pitocin rate (mU/min): 6 Assessment: induction ongoing Plan OB labor note: continuous present management Comments: Continue to increase Pitocin to ensure adequate labor
[2025-02-02] MEDS: ceFAZolin/D5W 2 GM IV 2 GM/100 ML BAG IV (14:42)
[2025-02-02] MEDS: METHYLERGONOVINE INJ 0.2 MG/ML VIAL IM (18:52)
[2025-02-02] MEDS: BENZO/LANO/ALOE (Dermoplast) 60 GM CAN 1 SPRAY TOP (18:52)
[2025-02-02] MEDS: OXYTOCIN in NS 20 units 20 UNIT/1,000 ML BAG 125 UNIT IV (18:53)
[2025-02-02] MEDS: DOCUSATE SOD 100 MG CAPSULE PO (20:00)
[2025-02-02] MEDS: IBUPROFEN TAB 400 MG TABLET 800 MG PO (20:35)
--- NOTE | 2025-02-02 21:41 | PD.LDDELS ---
Data ([place]) Data Hx Section: No Maternal Blood Type: AB Pos Rubella Titre: Positive RPR: Non-reactive Labs: Negative: RPR, Hepatitis B, HIV, Chlamydia, Gonorrhea and Group Beta Strep : 2 Term: 0 : 0 Livin Abortions: Spontaneous & Theraputic: 1 Delivery Data ([place]) Labor Data Initiation of labor: Augmentation Induction/Augmentation Agent: Pitocin ROM date: 02/01/25 ROM time: 15:26 Amniotic membrane rupture type: Spontaneous Amniotic fluid description: Moderate Meconium Delivery Data EDC: 02/04/25 EDC calculated by:: LMP/early US confirmation Date of arrival to unit: 02/01/25 Onset of labor date: 02/02/25 Onset of labor time: 08:39 Complete dilation date: 02/02/25 Complete dilation time: 18:15 delivery date: 02/02/25 delivery time: 18:43 Gestational age (weeks): 39 Gestational age (days): 5 Placenta delivery date: 02/02/25 Placenta delivery time: 18:48 Stage 1 total time: Labor - Stage 1 Duration 9 hours and 36 minutes Delivered by: Amy Beltran ([facility]) Delivery nurse: Nathaly Guzman RN [place] nurse: Madhavi Guzman RN Campaign Specialist at delivery: No Support person(s) at delivery: FOB, mother of pt Other staff at delivery: Gabriella Vaughn RN Delivery Method Delivery method: Normal Vaginal Delivery Presentation: Vertex position: OA Anesthesia Type Anesthesia Type: Epidural Delivery Room Medications Delivery room medications: Methergine 0.2 mg IM and Pitocin 20 u IV Placenta Placenta delivery description: Spontaneous Cord blood sent to lab: Yes cord blood collection: Cord Blood Type Episiotomy Episiotomy description: None Lacerations #3: Perineal: 1st degree Vaginal: 1st degree Labial: First degree Perineal repair Sutures used for repair: other (2-0 chromic) EBL Estimated blood loss (ml): 200 Umbilical Cord cord description: 3 Vessels Additional Procedures The patient is a 29-year-old -0-1-0 with all care uncomplicated with Dr. Peyton Roberson at the [facility] who presented to labor and delivery 02/02/2020 5 in the afternoon reporting ruptured membranes. Patient was admitted and was christoph on admission. She kicked in the labor overnight and had an epidural placed. I examined the patient around 8:00 in the morning on 02/02/2025 and she was about 4 to 5 cm dilated. Intrauterine pressure catheter was placed and eventually Pitocin augmentation was begun as her contractions spaced. The patient progressed to complete by 181 on 02/02/2025 and began pushing shortly thereafter. She pushed approximately 30 minutes delivering a liveborn female at 1843. Findings: Liveborn female in the MAYANK presentation with no nuchal cord and no meconium. Apgars were 9 and 9 weight was 8 pounds 4 ounces. As the baby was vigorous at , she was placed right on mother's chest and delayed cord clamping was performed for approximately 2 minutes. The cord was then clamped cut the was handed off to the waiting pediatric staff. Cord blood was collected, cord gases were saved. The placenta was complete, spontaneous and grossly normal delivering at 1848. Patient sustained a right labial minora laceration and a right vaginal sidewall laceration and a right first-degree perineal laceration all repaired in a standard fashion using 2-0 chromic. All were first-degree lacerations. Complications were none. Condition both mom and infant were in stable condition in the delivery room. Of note as patient had some postdelivery bleeding after the placenta delivered and she was given IM Methergine along with IV Pitocin. Total EBL was 200 cc. Complications Complications: none [place] Data ([place]) [place] Data order: 1 's gender: Female weight (gms): 3730 g Weight (pounds): 8 lbs and 3.6 ozs 1 minute: 9 5 minutes: 9
[2025-02-03 00:01] VITALS: BP 106/69; PULSE 55; RESP 16; TEMP 36.9; O2SAT 97
[2025-02-03 01:49] LABS: Basophils # (Auto) 0.1 Thou/mm3 (0.0-0.2); Basophils % (Auto) 0 % (0-2.5); Eosinophils # (Auto) 0.0 Thou/mm3 (0.0-0.5); Eosinophils % (Auto) 0 % (0-10); Hematocrit 36.5 % (36.0-46.0); Hemoglobin 12.5 g/dL (12.0-16.0); Immature Granulocytes Auto 0.14 Thou/mm3 (0.00-0.00); Lymphocytes # (Auto) 1.6 Thou/mm3 (1.0-4.8); Lymphocytes % (Auto) 8 % (10-50); Mean Corpuscular HGB Conc 34.2 g/dl (31.0-37.0); Mean Corpuscular Hemoglobin 32.9 pg (25.0-35.0); Mean Corpuscular Volume 96 fL (80-100); Monocytes # (Auto) 1.0 Thou/mm3 (0.0-0.8); Monocytes % (Auto) 5 % (0-12); Neutrophils # (Auto) 18.1 Thou/mm3 (1.8-7.7); Neutrophils % (Auto) 86 % (37-80); Nucleated Red Blood Cell # 0.00 Thou/mm3 (0.00-0.00); Nucleated Red Blood Cell % 0 /100 WBC (0); Platelet Count 215 Thou/mm3 (140-440); RDW Standard Deviation 46.1 fL (36.4-46.3); Red Blood Count 3.80 Miln/mm3 (4.00-5.20); White Blood Count 21.0 Thou/mm3 (3.6-11.0)
[2025-02-03 03:38] VITALS: BP 104/67; PULSE 78; RESP 16; TEMP 36.4; O2SAT 98
[2025-02-03] MEDS: LEVOTHYROXINE SODIUM 88 MCG TABLET PO (05:24)
[2025-02-03 07:56] VITALS: BP 101/68; PULSE 70; RESP 16; TEMP 36.6; O2SAT 98
[2025-02-03] MEDS: PRENATAL VITAMIN/FE FUM/FA TABLET 1 TAB PO (08:35)
[2025-02-03] MEDS: DOCUSATE SOD 100 MG CAPSULE PO ×2 (08:35→20:45)
[2025-02-03] MEDS: IBUPROFEN TAB 400 MG TABLET 800 MG PO (10:07)
--- NOTE | 2025-02-03 10:56 | PC.SS ---
SS conducted bedside contact with the patient to address nursing referral indicating patient had an a history of anxiety. SS asked for permission to speak in front of spouse.? Patient agreeable with speaking in front of spouse. SS introduced self and role. SS discussed with patient basis of referral.? Patient confirmed 5 years ago she had anxiety but no longer experiences it.? Patient states she also has a service dog that helps her if she ever experiences symptoms of anxiety again. Patient is not on any medications for anxiety. Patient, currently, has no impairments. Patient has no current thoughts of harming herself or others.? No other history of other documented mental health. FOB, Steve Lomas, is involved and resides in the home. This is patient?s 1st child. , baby girl, Sherry, was born via vaginal on 02/02/25. care was completed with Dr. Beltran.? Patient was consistent with . Patient plans on breast feeding. Patient is aligned with [facility]. Patient does not possess [place] assistance or Food stamps. Patient denies history of domestic violence. Patient has all resources to include: car seat, clothing and supplies.? surgical services director provided resources to include:? Parenting Network, Warm Line and community numbers. SS discussed in further detail emotional support and answered all questions appropriately. Patient verbalized she has support from her subscription clerk and her family. ?No further intervention required at this time, social media designer will be available to address any further concerns. SS updated bedside nurse. FOB: Steve Lomas,
[2025-02-03 12:01] VITALS: BP 102/60; PULSE 81; RESP 18; TEMP 36.6; O2SAT 98
--- NOTE | 2025-02-03 12:53 | PD.LDPPPRG ---
Subjective Subjective Interval history: Delivery type: Patient doing well this morning. No acute complaints. Ambulating, tolerating p.o. and voiding without difficulty. HTN/Pre-Eclampsia screen: No chest pain, shortness of breath, headache, visual changes, epigastric or right upper quadrant pain. Breast-feeding, lochia diminishing. Bowel: Flatus+/ BM+ Exam Vital Signs Temp Pulse Resp BP Pulse Ox O2 Del Method 97.9 F 81 18 102/60 98 Room Air 02/03/25 12:01 02/03/25 12:01 02/03/25 12:01 02/03/25 12:01 02/03/25 12:01 02/03/25 12:01 Constitutional Constitutional: no acute distress Routine HEENT Exam Head: Present normocephalic and atraumatic Eye: Present EOMI and PERRL ENT: Present mucous membranes moist Routine Neck Exam Neck: Present supple and trachea midline Routine Respiratory Exam Respiratory: Present chest non-tender, lungs clear, normal breath sounds and no resp distress Routine Cardiovascular Exam Cardiovascular: Present RRR Routine Abdominal Exam Abdominal: Present soft and normoactive bowel sounds Routine Extremities Exam Extremities: Present full ROM Routine Skin Exam Skin: Present intact, dry and warm Routine Neurological Exam Neurological: Present alert, oriented X3 and CN II-XII intact Routine Psychiatric Exam Psychiatric: Present normal affect and normal thought process Objective Labs 02/03/25 01:34 Labs: Laboratory Results - last 24 hr 02/03/25 01:34 WBC 21.0 H D RBC 3.80 L Hgb 12.5 Hct 36.5 MCV 96 MCH 32.9 MCHC 34.2 RDW Std Deviation 46.1 Plt Count 215 Neut % (Auto) 86 H Lymph % (Auto) 8 L [place] % (Auto) 5 Eos % (Auto) 0 Baso % (Auto) 0 Neut # (Auto) 18.1 H Lymph # (Auto) 1.6 [place] # (Auto) 1.0 H Eos # (Auto) 0.0 Baso # (Auto) 0.1 Immature Gran # (Auto) 0.14 H Absolute Nucleated RBC 0.00 Immature Gran % 1 H Nucleated RBC % 0 Assessment & Plan Problem List (1) Low lying placenta without hemorrhage, antepartum: Status: Acute (2) Conceived by in vitro fertilization: Status: Acute (3) : Status: Acute (4) with 39 completed weeks gestation: Status: Acute (5) Labor abnormality: Status: Acute (6) Normal vaginal delivery: Status: Acute Assessment and plan: 1. Continue routine /post-op care 2. Labs reviewed, cbc appropriate 3. Remove dressing/Hayes 4. Encourage to ambulate, shower 5. Encourage PO intake, breast feeding 6. Patient was a late evening delivery, anticipate discharge tomorrow Time Spent With Patient Time: Total time spent is greater than 50% in coordination of care (as documented) at patient's floor/unit and/or counseling patient:
[2025-02-03] MEDS: ACETAMINOPHEN 325 MG TABLET 650 MG PO (15:53)
[2025-02-03 16:00] VITALS: BP 98/62; PULSE 70; RESP 16; TEMP 36.7; O2SAT 98
[2025-02-03 20:00] VITALS: BP 101/64; PULSE 69; RESP 18; TEMP 36.5; O2SAT 99
[2025-02-04] MEDS: BENZO/LANO/ALOE (Dermoplast) 60 GM CAN 1 SPRAY TOP (00:40)
[2025-02-04] MEDS: IBUPROFEN TAB 400 MG TABLET 800 MG PO ×2 (01:41→10:32)
[2025-02-04 04:00] VITALS: BP 101/67; PULSE 74; RESP 16; TEMP 36.7; O2SAT 98
[2025-02-04] MEDS: LEVOTHYROXINE SODIUM 88 MCG TABLET PO (05:49)
[2025-02-04 07:43] VITALS: BP 99/62; PULSE 60; RESP 18; TEMP 36.4; O2SAT 98
--- NOTE | 2025-02-04 08:29 | PD.LDPPPRG ---
Subjective Subjective Interval history: Delivery type: Patient doing well this morning. No acute complaints. Ambulating, tolerating p.o. and voiding without difficulty. HTN/Pre-Eclampsia screen: No chest pain, shortness of breath, headache, visual changes, epigastric or right upper quadrant pain. Breast-feeding, lochia diminishing. Bowel: Flatus+/ BM+ Exam Vital Signs Temp Pulse Resp BP Pulse Ox O2 Del Method 97.6 F 60 18 99/62 98 Room Air 02/04/25 07:43 02/04/25 07:43 02/04/25 07:43 02/04/25 07:43 02/04/25 07:43 02/04/25 07:43 Constitutional Constitutional: no acute distress Routine HEENT Exam Head: Present normocephalic and atraumatic Eye: Present EOMI and PERRL ENT: Present mucous membranes moist Routine Neck Exam Neck: Present supple and trachea midline Routine Respiratory Exam Respiratory: Present chest non-tender, lungs clear, normal breath sounds and no resp distress Routine Cardiovascular Exam Cardiovascular: Present RRR Routine Abdominal Exam Abdominal: Present soft and normoactive bowel sounds Routine Extremities Exam Extremities: Present full ROM Routine Skin Exam Skin: Present intact, dry and warm Routine Neurological Exam Neurological: Present alert, oriented X3 and CN II-XII intact Routine Psychiatric Exam Psychiatric: Present normal affect and normal thought process Objective Labs 02/03/25 01:34 Assessment & Plan Problem List (1) Low lying placenta without hemorrhage, antepartum: Status: Acute (2) Conceived by in vitro fertilization: Status: Acute (3) : Status: Acute (4) with 39 completed weeks gestation: Status: Acute (5) Labor abnormality: Status: Acute (6) Normal vaginal delivery: Status: Acute Assessment and plan: PPD/POD#2 1. Continue routine care 2. Transition to PO meds. 3. Encourage to ambulate/ breast-feed 4. Anticipate discharge home today. Time Spent With Patient Time: Total time spent is greater than 50% in coordination of care (as documented) at patient's floor/unit and/or counseling patient:
[2025-02-04] MEDS: PRENATAL VITAMIN/FE FUM/FA TABLET 1 TAB PO (08:32)
[2025-02-04] MEDS: DOCUSATE SOD 100 MG CAPSULE PO (08:32)
--- NOTE | 2025-02-04 08:33 | PD.LDDS ---
DS: Providers Provider Date of admission: 02/01/25 17:40 Primary care physician: Physician No Primary/Family Admitting Provider: Joan Hatch CNM Attending Provider on Admission: Salas Ayala MD Consults: 02/02/25 19:23 Referral Routine Comment: Attending Provider on DC: Salas Ayala MD Discharging Provider: Salas Ayala MD DS: Diagnosis Discharge Diagnosis (1) Normal vaginal delivery: Status: Acute Problem List Completed Was Problem List Reviewed/Reconciled?: Yes Summary/Hosp Course Peripartum Data Delivery Method: Normal Vaginal Delivery Episiotomy Description: None Time Spent with Patient Time attestation: Total time spent providing and/or coordinating discharge services: Exam Vital Signs Temp Pulse Resp BP Pulse Ox O2 Del Method 97.6 F 60 18 99/62 98 Room Air 02/04/25 07:43 02/04/25 07:43 02/04/25 07:43 02/04/25 07:43 02/04/25 07:43 02/04/25 07:43 Discharge Plan Plan Patient Disposition: HOME (Self Care) Patient condition on transfer: Stable Prescriptions/Referrals Prescriptions/Med Rec: New ibuprofen 400 mg Tablet 800 mg PO Q8H PRN (Reason: See Comments) 1 Days Qty: 40 0RF docusate sodium 100 mg Capsule 100 mg PO BID 30 Days Qty: 60 0RF Continued levothyroxine 88 mcg capsule 88 mcg PO QDAY Qty: 60 0RF Classic 28 mg iron- 800 mcg tablet 1 tab PO QDAY Referrals: Devin ([facility])Amy MD [Physician, PRODUCTION SUPERVISOR] No Primary/Family,Physician [Primary Care Provider] Patient/Caregiver Discharge Instructions Meds to Beds: Yes Print Language: Tajik Stand Alone Forms: Rosibel Award Info., Patient Portal Info Letter Discharge Order Discharge Orders: Discharge (Routine); Ordered 02/04/25 Ordered By: Salas Ayala Planned Discharge Date 02/04/25
[2025-02-04] MEDS: ACETAMINOPHEN 325 MG TABLET 650 MG PO (08:44)
[2025-02-04 12:00] VITALS: BP 98/68; RESP 18; TEMP 36.7; O2SAT 98
== END 2025-02-04 12:05 | disposition home or self-care (01) | DRG 560 ==
LOC: S4SX 02-02 19:15 → S4NX 02-02 21:07
PROVIDERS: Obstetrics & Gynecology; Admitting Provider Advanced Practice Midwife; Visit Provider Obstetrics & Gynecology
DX: O44.43 Low lying placenta NOS or without hemorrhage, third trimester (principal); Z37.0 Single live birth; Z3A.39 39 weeks gestation of pregnancy; O77.0 Labor and delivery complicated by meconium in amniotic fluid; O70.0 First degree perineal laceration during delivery
CPT/HCPCS: 36415; 59025; 59409; 84112; 85025; 86780; 86850; 86900; 86901; 94762; J0689; J2210; J2590; J2795; J3010; J7120; A9270

== ENCOUNTER 2025-03-24 09:25 | Outpatient (AMB) | payer MEDICAID, SELFPAY ==
[2025-03-24 09:31] VITALS: BP 114/80; PULSE 70; RESP 18; TEMP 36.4; O2SAT 18; BMI 22.9
--- NOTE | 2025-03-24 09:31 | AMBOBPPN_ITS ---
Vital Signs 03/24/25 09:31 Height 1.65 m Height Method Stated Weight 62.652 kg Weight Measurement Method Standing Scale BMI 22.9 BP 114/80 Blood Pressure Source Automatic Cuff Blood Pressure Location Right Upper Arm Position Sitting Respiration 18 Pulse 70 Pulse Source Monitor Temp 97.6 F Temp Source Temporal Artery Scan Pulse Oximetry (%) 18 L Oxygen Delivery Method Room Air Allergies/Home Meds Allergies & Medications Allergies No Known Allergies Allergy (Verified 03/24/25 09:32) Medication Reconciliation vits no.126-ferrous fum 28 mg iron-folic acid 800 mcg tablet (Classic ) 1 tab PO QDAY 11/25/24 [History Confirmed 03/24/25] magnesium citrate (Citroma oral solution) 296 ml PO QDAY #296 mL 02/09/25 [Rx Confirmed 03/24/25] levothyroxine 88 mcg capsule 88 mcg PO QDAY #60 caps 02/22/25 [Rx Confirmed 03/24/25] Intake Visit Data Collection New Patient or Established: Established Patient (seen at [facility] within 3 years) Reason for Visit:: PP Seen by Clinical Staff ONLY (RN/MA): No Pen Rider Required: No Do You Feel Safe at Home: Yes Authorities Contacted: N/A PCP or OBGYN visit in last 3 months: Yes Hx Now: No Are you currently on any form of Control: No Pain Present Currently: Yes Pain Location: Unable to identify Pain Scale Used: [place]ov[place]-Roy/Numerical Pain scale:: 5 Smoking Status Smoking Status: Never smoker Immunizations Flu Vaccine in the Last 12 Months: Yes Date of most recent flu vaccination: 02/02/25 Flu Vaccine Exclusion Criteria: No Exclusion Criteria 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 Her was in the . She was raised here Tobacco History Smoking Status: Never smoker Second Hand Smoke Exposure: No Alcohol History Alcohol Intake: Never Domestic Abuse History Do You Feel Safe at Home: Yes Care OB Visit Log OB Flowsheet Initial Weight: Not Recorded Date -?-?-?-?-?-?-?-?-?-?-?-?- EGA Weight BP Alb Glu CTX Pres Fundal ht FHR Mov Dilation Station Effacement Hx Notes Visit Note 12/13/24 -?-?-?-?-?-?-?-?-?-?-?-?- 32w 3d 72.745 kg 109/75 absent 33 145 active +FM, N o UCs No VB Discussed labor. Patient would like to go natural but she is flexible. She would like to sit on the labor ball if possible. Patient is very reasonable with her labor plan. She states I trust my medical providers . 12/29/24 -?-?-?-?-?-?-?-?-?-?-?-?- 34w 5d 73.936 kg 126/72 absent cephalic 34 137 active +FM No UCs or LOF 01/04/25 -?-?-?-?-?-?-?-?-?-?-?-?- 35w 4d 74.162 kg 121/71 occasional cephalic 36 134 active Good movement. No contractions or loss of fluids. No vaginal bleeding Group B strep next visit. 01/19/25 -?-?-?-?-?-?-?-?-?-?-?-?- 37w 5d 75.977 kg 109/71 occasional cephalic 36 143 active 1 -1 80 Good movement no contractions no loss of fluids Strep screen done today 01/26/25 -?-?-?-?-?-?-?-?-?-?-?-?- 38w 5d 75.466 kg 110/78 occasional cephalic 37 145 active Good movement no contractions no loss of fluids Patient did not want to be examined today. NST reactive today at the hospital. BPP normal. Group B strep negative. 03/24/25 -?-?-?-?-?-?-?-?-?-?-?-?- 46w 6d 62.652 kg 114/80 NYDIA Calculator Estimated Delivery Date Method Current WG Current Estimate 02/04/25 LMP (Certain) 48w 4d Other Estimates 01/31/25 Ultrasound #1 49w 1d Expected Delivery Route/Plan Anticipate Has a plan wants FOB to deliver baby Specific Issue/Plans 29-year-old -0-1-0 IVF EDC 02/02/2025 consistent with 8-week ultrasound and 20-week ultrasound Had ECHO on baby due to IVF Notes Visit Date: 03/24/25 Last Updated by: Cecille Walton MD visit/ Patient had an on 02/02/2025 and was delivered vaginally . she would like a pelvic exam L1 now . She had an IVF and is delivered now she feels pain when she sits and feels like the clitoral area is engorged and she is wondering why that happens. she has been through IVF treatments for almost 3 years as I understand and her body has been through hormonal turmoil pelvic exam is normal / small blue vein on R side upper Labia near clitoris and she states she has had that before / varicose vein . recommend exercise and follow up in 3 months and will plan on pelvic exam and re evaluating her symptoms then/ she declines Contraception and is exclusively breast feeding Visit Date: 01/26/25 Last Updated by: Amy Beltran ([facility])MD Labor precautions kick counts group B strep negative. Visit Date: 01/19/25 Last Updated by: Amy Beltran ([facility])MD Urine dip negative protein negative glucose today. Labor precautions and kick counts reviewed Visit Date: 01/04/25 Last Updated by: Amy Beltran ([facility])MD Ordered weekly NST CHANTAL's for IVF . Visit Date: 12/29/24 Last Updated by: [facility]MD US ordered 12/29: No low-lying placenta Baby VTX 2610 gm CHANTAL 13.8 appropriate growth Visit Date: 12/13/24 Last Updated by: [facility]MD care labs reviewed on chart. AB+/antibody negative/rubella immune/RPR nonreactive/hepatitis B surface antigen negative/hepatitis C negative/GC negative Chlamydia negative//hemoglobin A1c in normal at 4.8./NIPT SMA CF negative/21-week ultrasound normal anatomy with a low-lying placenta/echocardiogram on baby normal/EDC by 20-week ultrasound 02/02/2025/EDC by 8-4/7 weeks ultrasound 02/02/2025/EDC by IVF 02/04/2025/urine culture negative. 1 hour glucose 104 Exam Narrative Physical exam: alert x3 chest clear CVS RRR NO thyromegaly Uterus is normal Uterus is firm Just below the umbilicus Bowel sounds present Abdomen soft pelvic exam shows normal uterus and adnexa and well healed perineum and also small varicose vein on R upper labia near clitoris non tender exam No calf tenderness Edema none Office Procedures [facility] LOC & Office Proc's Nursing/Assessment Patient Status: Established Patient OB Clinic Nursing Assessment: Medication Reconciliation, Update PMH in EMR and Vital Signs OB Clinic Coordination of Care: Complex Care and Chronic Disease 1-5, Education Complex Pt/Fam, Consent,records obtained, informed consent, Lab and Imaging orders, Results/Orders obtained and Staff clarify orders Established Patient Charge Established Patient Point Assignment: 110 Established Patient Point Charge: EP Level 3 (80-115) Assessment & Plan Care Reviewed delivery summary and any complications: Yes Uterus involuted to: normal Perineal / incision healing noted: Yes Discussed family planning & contraception: Yes Counseling on safe resumption of sexual activity: Yes Counseling on gradual excercise: Yes Discussed and concerns (describe), provided support: Yes Counseled on good nutrition, hydration, and self care: Yes Reviewed vaccine status: Yes Additional follow up plans: Plan follow up in 3 months for pelvic exam and pap and reassess clitoral/ vaginal pain / engorgement
== END 2025-03-24 11:12 | disposition home or self-care (01) ==
LOC: HODSOBC 09:25
PROVIDERS: Supervising Provider Obstetrics & Gynecology; Visit Provider Obstetrics & Gynecology
DX: Z39.2 Encounter for routine postpartum follow-up (principal); Z39.1 Encounter for care and examination of lactating mother; O99.285 Endocrine, nutritional and metabolic diseases complicating the puerperium; E03.9 Hypothyroidism, unspecified; Z79.890 Hormone replacement therapy
CPT/HCPCS: 99213; G0463